=== PATIENT | male | born 1965 | race Two or more races ===

== ENCOUNTER 2019-08-11 13:58 | Emergency (ER) | payer MEDICAID, OTHER ==
[~2019-08-11] VITALS: Ht 160 cm; Wt 81.6 kg
--- NOTE | 2019-08-11 14:08 | NUR ---
"Cut left finger (index and pinky) w/a saw", PT AWAKE ALERT, -SOB, PT ON MONITOR, VSS, PENDING MD ANTONIO
[2019-08-11] MEDS ORDERED: LIDOCAINE 1% INJ 50 ML MDV IJ ONE (14:30)
[2019-08-11] MEDS ORDERED: BUPIVACAINE 0.5 % PF 150 MG/30 ML VIAL IJ ONE (14:30)
[2019-08-11] MEDS ORDERED: TDAP [DIPH/PERTUSSIS/TET] 0.5 ML VIAL IM ONE ×2 (14:30→15:22)
[2019-08-11] MEDS ORDERED: LIDOCAINE HCL/MPF 1% 30 ML VIAL IJ ONE (15:22)
[2019-08-11] MEDS ORDERED: BUPIVACAINE 0.5 % PF 150 MG/30 ML VIAL ONE (15:22)
[2019-08-11] MEDS ORDERED: CEFAZOLIN 2 GM in IV D5W 100 ML IV ONE (17:00)
--- NOTE | 2019-08-11 17:00 | NUR ---
CALLED [facility], AWAITING MD CALL BACK
[2019-08-11 17:17] LABS: BASOPHILS % (AUTO) 0.4 % (0.0-2.0); EOSINOPHILS % (AUTO) 0.4 % (0.0-6.0); HEMATOCRIT 50 % (39-51); HEMOGLOBIN 16.9 g/dL (13.5-17.5); LYMPHOCYTES # (AUTO) 1.6 /CMM (0.8-4.8); MEAN CORPUSCULAR HGB CONC 34 g/dl (31.0-36.0); MEAN CORPUSCULAR VOLUME 93 fL (80-96); MONOCYTES # (AUTO) 0.6 /CMM (0.1-1.30); NEUTROPHILS # (AUTO) 9.3 /CMM (1.8-8.9); NEUTROPHILS % (AUTO) 80.2 % (43.0-81.0); PLATELET COUNT (AUTO) 241 /CMM (150-450); RED BLOOD CELL COUNT(AUTO) 5.37 MIL/uL (4.5-6.0); WHITE BLOOD COUNT (AUTO) 11.6 K/uL (4.3-11.0)
[2019-08-11 17:30] LABS: CALCIUM, SERUM 8.7 mg/dL (8.5-10.1); CREATININE 1.1 mg/dL (0.6-1.3); POTASSIUM 3.9 mmol/L (3.5-5.1)
[2019-08-11 17:43] VITALS: BP 135/94
[2019-08-11] MEDS ORDERED: ATOR20TA PO (18:03)
[2019-08-11] MEDS ORDERED: MELO-105 PO (18:03)
[2019-08-11] MEDS ORDERED: CYCL30DR EACHEYE (18:03)
[2019-08-11] MEDS ORDERED: CYCL5TAB PO (18:03)
[2019-08-11] MEDS ORDERED: [UNRECOGNIZED DRUG - CODE] EACHEYE (18:03)
[2019-08-11] MEDS ORDERED: CARB15DR EACHEYE (18:03)
--- NOTE | 2019-08-11 19:47 | NUR ---
Patient discharged to home in stable condition. Written and verbal after care instructions given. Patient verbalizes understanding of instruction. IV removed. Catheter intact and site benign. Pressure and 4x4 applied to site. No bleeding noted.
== END 2019-08-11 19:47 | disposition home or self-care (01) ==
LOC: ER 14:05
DX: S62.631B Displaced fracture of distal phalanx of left index finger, initial encounter for open fracture (principal); S62.627B Displaced fracture of middle phalanx of left little finger, initial encounter for open fracture; Z79.899 Other long term (current) drug therapy; W26.8XXA Contact with other sharp object(s), not elsewhere classified, initial encounter; Y93.89 Activity, other specified; Y92.89 Other specified places as the place of occurrence of the external cause; Y99.8 Other external cause status
CPT/HCPCS: 29130 ×2; 36415; 71045; 73130; 80048; 85025; 85730; 90471; 90715; 93005; 96365; 99284; A6403 ×2; J0690; J3490 ×2; J7060